=== PATIENT | female | born 1965 | race African-American/Black ===

== ENCOUNTER 2018-01-31 05:50 | Inpatient (IN) | payer BC ==
[2018-01-19 10:01] VITALS: BMI 21.9
[2018-01-31] MEDS ORDERED: TRANEXAMIC ACID 1000 MG/10 ML VIAL IVPUSH ONE (06:19)
[2018-01-31] MEDS ORDERED: ROPIVICAINE 0.2%/MORPH PF/KETOROLAC - 51ML DISP.SYRINGE IA ONE ×3 (06:19→08:46)
[2018-01-31] MEDS ORDERED: oxyCODONE HCL 10 MG SUSTAINED ACTING TABLET PO ONE (06:19)
[2018-01-31] MEDS ORDERED: CEFAZOLIN 1 GM/D5W 1 GM/50 ML BAG IVPB ONE (06:19)
[2018-01-31] MEDS ORDERED: GABAPENTIN 300 MG CAPSULE (FP) PO ONE (06:19)
[2018-01-31] MEDS ORDERED: GABAPENTIN 300 MG CAPSULE (FP) ONE (06:48)
[2018-01-31] MEDS ORDERED: oxyCODONE HCL 10 MG SUSTAINED ACTING TABLET ONE (06:48)
[2018-01-31] MEDS ORDERED: BUPIVACAINE HCL/PF (5 MG/ML) 30 ML VIAL IJ ONE (06:53)
[2018-01-31] MEDS ORDERED: MIDAZOLAM HCL 2 MG/2 ML SINGLE DOSE VIAL ONE (06:53)
[2018-01-31] MEDS ORDERED: DEXAMETHASONE SOD PHOSPHATE/PF 10 MG/ML SDV ONE (06:53)
[2018-01-31] MEDS ORDERED: SUCCINYLCHOLINE CHLORIDE 200 MG/10 ML VIAL ONE (07:11)
[2018-01-31] MEDS ORDERED: PROPOFOL 20 ML ONE (07:11)
[2018-01-31] MEDS ORDERED: DEXAMETHASONE SOD PHOSPHATE 4 MG/1 ML VIAL ONE (07:12)
[2018-01-31] MEDS ORDERED: ONDANSETRON 4 MG/2 ML VIAL ONE (07:12)
[2018-01-31] MEDS ORDERED: ceFAZolin SODIUM 1 GM VIAL ONE (07:12)
[2018-01-31] MEDS ORDERED: TRANEXAMIC ACID 1000 MG/10 ML VIAL ONE ×2 (08:29→09:59)
[2018-01-31] MEDS ORDERED: ceFAZolin SODIUM 1 GM VIAL IVPB ONE (08:45)
[2018-01-31] MEDS ORDERED: ONDANSETRON 4 MG/2 ML VIAL IVPUSH PRN (10:03)
[2018-01-31] MEDS ORDERED: MAG HYDROX/AL HYDROX/SIMETH 30 ML UNIT-DOSE CUP PO PRN (10:03)
--- NOTE | 2018-01-31 10:07 | SURG ---
Surgery Owner Manager Note Owner Manager: Braydon Ramirez PA-C Date of Service: 01/31/18 Diagnosis: Left knee medial DJD, OA Procedure: TADEO Left knee (medial) arthoplasty I was present for the entirety of the operative procedure. For further detail, please refer to operative report. Visit type - Case Type Case Type: Scheduled - New patient This patient is new to me today: Yes Date on this admission: 01/31/18
[2018-01-31] MEDS ORDERED: LACTATED RINGERS SOLUTION 1,000 ML IV SCH (10:15)
[2018-01-31] MEDS ORDERED: oxyCODONE HCL 5 MG TABLET PO PRN ×2 (10:59)
[2018-01-31] MEDS ORDERED: ACETAMINOPHEN 325 MG TABLET (FP) PO ONE (11:09)
--- NOTE | 2018-01-31 14:38 | SPEC ---
DATE OF OPERATION: 01/31/2018 PREOPERATIVE DIAGNOSIS: Degenerative joint disease, left knee. POSTOPERATIVE DIAGNOSIS: Degenerative joint disease, left knee. PROCEDURE: Left medial unicompartmental knee replacement with robotic-assisted navigation (MAKOplasty) and patelloplasty. SURGICAL ATTENDING: Carlos Navarrete MD OPERATIONS INSPECTOR: CONG John ANESTHESIA: Regional and spinal. CLOSURE: Medial unicompartmental TADEO components with a 4 femur, 4 tibia, and an 8 polyethylene; No. 1 Vicryl, fascia; 0 and 2-0, subcutaneous; 3-0 Monocryl subcuticular with skin glue for skin; 4-0 undyed Vicryl for pin sites. ESTIMATED BLOOD LOSS: Negligible. TOURNIQUET TIME: Approximately 21 minutes. COMPLICATIONS: None. CONDITION: To recovery in stable condition. DESCRIPTION OF OPERATIVE PROCEDURE: Patient was taken to the operating room on January 31, 2018. Spinal and regional anesthesia was administered by the anesthesiologist. IV Kefzol and TXA were administered prophylactically prior to the case. A well-padded pneumatic tourniquet was placed on the left proximal thigh. The left lower extremity was prepped and draped in the usual sterile fashion. A 6- to 8-cm longitudinal incision over the medial side of the patella from mid patella to the tibial tubercle was incised and was deepened using Bovie cautery. An arthrotomy was then made just medial to the patellar tendon and the patella. Subperiosteal dissection was done on the anteromedial proximal tibia all the way back to the MCL. Partial fat pad excision was performed, exposing the medial compartment. Checkpoint was malleable at both the femur and the tibia. Using 2 stab incisions in the femur 1 handbreadth above the patella on the femur and 2 stab incisions 1 handbreadth below the tibial tubercle on the tibia, 2 threaded pins were drilled in parallel fashion from anterior to posterior, going through the proximal cortex and engaging the 2nd but not through the 2nd cortex. To these threaded pins were fastened navigation rays, 1 on the femur and 1 on the tibia. The knee was then registered with the navigation device with the center of the rotation of the hip, medial and lateral malleoli, and multiple points both on the femur and on the tibia. Excellent registration of less than 0.5 mm was obtained on both to ensure adequate registration. The navigation device ensured us to "pop the bubbles" both on the femur and the tibia and that was performed and passed registration. The knee was then thoroughly inspected to remove all osteophytes both on the femur and the tibia. Also, osteophytes on the trochlea and on the surface of the patella were removed as well. The knee was then stressed with valgus stress at 0, 30, 60, 90, and 120 degrees of flexion. This propagated a looseness/tightness graft. The virtual positions of the components were then optimized to ensure an excellent graft. The tracking also was optimized by manipulating the virtual position to ensure that the femoral component articulated with the central portion of the tibial component. The robot was then brought into the field and was registered. The robot was used to bur the bone on both the femur and the tibia as to the specifications of the components. The trial components were then applied on both the femur and the tibia with an appropriate polyethylene insert. The knee was taken through a range of motion and found to have full extension, full flexion, with excellent stability. Stressing the graft revealed an excellent looseness/tightness graft with the trial components in place. The trial components were removed. The knee was thoroughly irrigated with a copious amount of antibiotic irrigation. The real components were then cemented in using modern generation cement techniques with antibiotic cement and pressurization. After the cement was hardened, the knee was thoroughly inspected to remove out all excess cement. The real polyethylene insert was then clipped into place. Range of motion and stability were again assessed to be as they were with the trials. At this time, the pins and the checkpoints were removed. The knee was again thoroughly irrigated. The arthrotomy was closed with No. 1 Vicryl, 0 and 2-0 subcutaneous, and 3-0 Monocryl subcuticular with skin glue for the skin, 4-0 undyed Vicryl for the pin sites. Sterile pressure dressing was placed over the knee. Patient awakened from anesthesia and transferred to recovery in stable condition. No complications. Estimated blood loss negligible. X-rays postoperatively revealed excellent position of the components. Laz [id number]
[2018-01-31] MEDS: ACETAMINOPHEN 325 MG TABLET (FP) PO SCH (18:32)
[2018-01-31] MEDS: CEFAZOLIN 1 GM/D5W 1 GM/50 ML BAG IVPB SCH (18:33)
[2018-01-31] MEDS: ASPIRIN 325 MG TABLET PO SCH (21:30)
[2018-01-31] MEDS: CELECOXIB 200 MG CAPSULE PO SCH (21:30)
[2018-01-31] MEDS: GABAPENTIN 300 MG CAPSULE (FP) PO SCH (21:31)
[2018-01-31] MEDS: oxyCODONE HCL 10 MG SUSTAINED ACTING TABLET PO SCH (21:31)
[2018-01-31] MEDS: ASCORBIC ACID 500 MG TABLET (FP) PO SCH (21:31)
[2018-01-31] MEDS: SENNOSIDES/DOCUSATE COMBO (SENNA PLUS) TABLET (UD) PO SCH (22:03)
[2018-01-31 22:18] VITALS: PULSE 59
[2018-02-01] MEDS: CEFAZOLIN 1 GM/D5W 1 GM/50 ML BAG IVPB SCH (02:00)
[2018-02-01] MEDS: ACETAMINOPHEN 325 MG TABLET (FP) PO SCH ×2 (06:04→12:19)
[2018-02-01 06:38] VITALS: BP 141/71; TEMP 98.6
[2018-02-01 08:24] LABS: HEMATOCRIT 37.1 % (32.4-45.2); HEMOGLOBIN 12.6 GM/dl (10.7-15.3); MCH 27.6 pg (25.7-33.7); MCHC 33.9 g/dl (32.0-36.0); MEAN CELL VOLUME 81.3 fl (80-96); MEAN PLT VOLUME 10.2 fl (7.5-11.1); PLATELET COUNT 206 K/MM3 (134-434); RBC 4.57 M/mm3 (3.60-5.2); RDW 14.9 % (11.6-15.6); WHITE BLOOD COUNT 8.4 K/mm3 (4.0-10.8)
--- NOTE | 2018-02-01 08:24 | PN ---
Progress Note (short form) - Note Progress Note: AVSS COMFORTABLE BANDAGES DRY AND INTACT CALF SOFT AND NT + STRAIGHT LEG RAISE ABILITY AROM 0-95 IMP: DOING WELL PLAN: PT FOR AMBULATION, DC TO HOME AFTER PT, F/U MY OFFICE x 1 WEEK
[2018-02-01 08:33] LABS: ANION GAP 7 MMOL/L (8-16); BLOOD UREA NITROGEN 13 mg/dl (7-18); CALCIUM 8.9 mg/dl (8.4-10.2); CHLORIDE 104 mmol/L (98-107); CO2 27 mmol/L (22-28); CREATININE 0.7 mg/dl (0.6-1.3); GLUCOSE,RANDOM 96 mg/dl (74-106); SODIUM 138 mmol/L (136-145)
[2018-02-01] MEDS ORDERED: PANTOPRAZOLE 40 MG TABLET (FP) PO SCH (10:00)
[2018-02-01] MEDS ORDERED: MULTIVITAMINS (DAILY MVI) TABLET (FP) PO SCH (10:00)
[2018-02-01] MEDS: ASPIRIN 325 MG TABLET PO SCH (10:09)
[2018-02-01] MEDS: oxyCODONE HCL 10 MG SUSTAINED ACTING TABLET PO SCH (10:09)
[2018-02-01] MEDS: CELECOXIB 200 MG CAPSULE PO SCH (10:10)
[2018-02-01] MEDS: GABAPENTIN 300 MG CAPSULE (FP) PO SCH (10:11)
[2018-02-01] MEDS: SENNOSIDES/DOCUSATE COMBO (SENNA PLUS) TABLET (UD) PO SCH (10:11)
[2018-02-01] MEDS: ASCORBIC ACID 500 MG TABLET (FP) PO SCH (10:11)
== END 2018-02-01 13:02 | disposition home health service (06) | DRG 470 ==
LOC: FM/S 05:50 → EDSTATUS 09:30 → FM/S 11:20
PROVIDERS: ADMIT Orthopaedic Surgery; ATTEND Orthopaedic Surgery
PROC: 8E0Y0CZ Robotic Assisted Procedure of Lower Extremity, Open Approach (ICD-10-PCS; 2018-01-31)
PROC: 0SRD0J9 Replacement of Left Knee Joint with Synthetic Substitute, Cemented, Open Approach (ICD-10-PCS; principal; 2018-01-31 09:15)
DX: M17.12 Unilateral primary osteoarthritis, left knee (principal)
CPT/HCPCS: 36415; 73560-TC-LT-FY; 80048; 85027; 87389; 94760; 97116-GP; 97162-GP

== ENCOUNTER 2019-01-20 10:18 | Emergency (ER) | payer BC | END 2019-01-20 11:11 | disposition home or self-care (01) | LOC: JERFT 10:18 ==

== ENCOUNTER 2019-05-16 12:08 | Emergency (ER) | payer OTHER, BC ==
[2019-05-16 12:16] VITALS: BP 133/64; PULSE 95; TEMP 98.1; BMI 22.1
[2019-05-16] MEDS ORDERED: KETOROLAC TROMETHAMINE 60 MG/2 ML VIAL IM ONE (12:56)
[2019-05-16] MEDS ORDERED: diazePAM 5 MG TABLET PO ONE (12:57)
[2019-05-16] MEDS ORDERED: diazePAM 5 MG TABLET ONE (13:00)
[2019-05-16] MEDS ORDERED: KETOROLAC TROMETHAMINE 60 MG/2 ML VIAL ONE (13:00)
--- NOTE | 2019-05-16 13:43 | PDOC ---
History of Present Illness - General Chief Complaint: Head/Neck problem Stated Complaint: NECK PAIN Time Seen by Provider: 05/16/19 12:46 - History of Present Illness Initial Comments: 05/16/19 13:41 53-year-old female without comorbidities presents for evaluation of cervical spine pain history of herniated disc without radicular or systemic symptoms x3 days Past History - Past Medical History Allergies/Adverse Reactions: Allergies Allergy/AdvReac Type Severity Reaction Status Date / Time Sulfa (Sulfonamide Allergy Severe Hives Verified 05/16/19 12:16 Antibiotics) Home Medications: Ambulatory Orders Ferrous Sulfate 325 mg PO DAILY 01/19/18 Multivitamin [Multiple Vitamins] 1 each PO Q2D 01/19/18 Oxycodone HCl/Acetaminophen [Percocet 5-325 mg Tablet -] 1 - 2 tab PO Q6H #60 tab MDD 6 02/01/18 Valacyclovir HCl [Valtrex] 1,000 mg PO BID #20 tablet 01/20/19 Cyclobenzaprine HCl [Flexeril 10 mg] 10 mg PO HS PRN #10 tablet 05/16/19 Ibuprofen [Motrin -] 600 mg PO TID #30 tablet 05/16/19 Anemia: No Asthma: No (CHILDHOOD) Cancer: No Cardiac Disorders: No CVA: No COPD: No CHF: No Dementia: No Diabetes: No GI Disorders: No Disorders: No HTN: No Hypercholesterolemia: No Liver Disease: No Seizures: No Thyroid Disease: No - Surgical History Abdominal Surgery: Yes (UMBILICAL HERNIA REPAIR) Appendectomy: No Cardiac Surgery: No Cholecystectomy: No Lung Surgery: No Neurologic Surgery: No Orthopedic Surgery: Yes (LEFT AND RIGHT KNEE ARTHROSCOPY, LEFT SHOULDER SURGERY) - Immunization History Immunization Up to Date: Yes - Psycho Social/Smoking Cessation Hx Smoking History: Current every day smoker Have you smoked in the past 12 months: Yes Number of Cigarettes Smoked Daily: 10 Information on smoking cessation initiated: No 'Breaking Loose' booklet given: 11/21/17 Hx Alcohol Use: No Drug/Substance Use Hx: No Substance Use Type: Marijuana Hx Substance Use Treatment: No Review of Systems - Review of Systems Constitutional: No: Fever Musculoskeletal: Yes: Neck Pain *Physical Exam - Vital Signs Last Vital Signs Temp Pulse Resp BP Pulse Ox 98.1 F 95 H 17 133/64 100 05/16/19 12:10 05/16/19 12:10 05/16/19 12:10 05/16/19 12:10 05/16/19 12:10 - Physical Exam 05/16/19 13:42 Cervical spine skin color temperature normal range of motion is limited. No midline tenderness moderate bilateral musculature spasm and tenderness about the paracervical musculature. 5 out of 5 strength bilateral upper extremities without gross sensorimotor deficits neurovascular intact. ED Treatment Course - Medications Given in the ED: ED Medications Discontinued Medications Generic Name Dose Route Start Last Admin Trade Name Freq PRN Reason Stop Dose Admin Diazepam 10 mg 05/16/19 12:57 05/16/19 13:17 Valium - PO 05/16/19 12:58 10 mg ONCE ONE Administration Ketorolac Tromethamine 60 mg 05/16/19 12:56 05/16/19 13:16 Toradol Injection - IM 05/16/19 12:57 60 mg ONCE ONE Administration Medical Decision Making - Medical Decision Making 05/16/19 13:42 Cervical strain Flexeril and Motrin follow-up with Ortho she has an orthopedic spine surgeon and scheduled appointment in the next 3 weeks Discharge - Discharge Information Problems reviewed: Yes Clinical Impression/Diagnosis: Cervical strain Condition: Stable Disposition: HOME - Admission No - Additional Discharge Information Prescriptions: Cyclobenzaprine HCl [Flexeril 10 mg] 10 mg PO HS PRN #10 tablet PRN Reason: Muscle Spasms Ibuprofen [Motrin -] 600 mg PO TID #30 tablet - Follow up/Referral - Patient Discharge Instructions Additional Instructions: Return to the emergency room for worsening symptoms. Please take the Motrin and Flexeril as directed follow-up with your orthopedic spine surgeon without fail in the next 2 to 3 weeks - Post Discharge Activity Work/Back to School Note: Back to Work
== END 2019-05-16 13:51 | disposition home or self-care (01) ==
LOC: JERFT 12:08
PROC: 3E0233Z Introduction of Anti-inflammatory into Muscle, Percutaneous Approach (ICD-10-PCS; principal; 2019-05-16)
DX: S16.1XXA Strain of muscle, fascia and tendon at neck level, initial encounter (principal); X58.XXXA Exposure to other specified factors, initial encounter; Y93.89 Activity, other specified; Y92.89 Other specified places as the place of occurrence of the external cause; F17.210 Nicotine dependence, cigarettes, uncomplicated; Z88.2 Allergy status to sulfonamides
CPT/HCPCS: 99282-25

== ENCOUNTER 2020-11-23 17:22 | Emergency (ER) | payer BC ==
[2020-11-23 17:30] VITALS: TEMP 98.2; BMI 22.3
[2020-11-23] MEDS ORDERED: TAMSULOSIN HCL 0.4 MG CAP PO ONE (18:29)
[2020-11-23] MEDS ORDERED: SODIUM CHLORIDE 1,000 ML IV STA (18:29)
[2020-11-23] MEDS ORDERED: KETOROLAC TROMETHAMINE 30 MG/1 ML VIAL IVPUSH ONE (18:29)
[2020-11-23] MEDS ORDERED: KETOROLAC TROMETHAMINE 30 MG/1 ML VIAL ONE (18:31)
[2020-11-23 18:47] LABS: BASO % 1.7 % (0-2.0); EOS % 3.8 % (0-4.5); HEMATOCRIT 42.8 % (32.4-45.2); HEMOGLOBIN 14.4 GM/dL (10.7-15.3); LYMPH % 35.4 % (8-40); MCH 26.4 pg (25.7-33.7); MCHC 33.8 g/dl (32.0-36.0); MEAN CELL VOLUME 78.1 fl (80-96); MEAN PLT VOLUME 8.6 fl (7.5-11.1); NEUT % 49.1 % (42.8-82.8); PLATELET COUNT 215 10^3/uL (134-434); RBC 5.47 M/mm3 (3.60-5.2); RDW 15.3 % (11.6-15.6); WHITE BLOOD COUNT 6.1 K/mm3 (4.0-10.0)
[2020-11-23 18:52] LABS: EPI CELLS 10 /uL (0-25.1); HYALINE CASTS 1 /uL (0-3.1); PH,URINE 7.5 (5.0-8.0); URINE APPEARANCE CLOUDY; URINE BACTERIA 20 /uL (0-1359); URINE BILIRUBIN NEGATIVE (NEGATIVE); URINE COLOR YELLOW; URINE GLUCOSE (UA) NEGATIVE (NEGATIVE); URINE KETONE NEGATIVE (NEGATIVE); URINE LEUK ESTERASE 1+ (NEGATIVE); URINE NITRITE NEGATIVE (NEGATIVE); URINE PROTEIN TRACE (NEGATIVE); URINE RBC 38 /uL (0-23.9); URINE WBC 62 /uL (0-25.8)
[2020-11-23] MEDS ORDERED: MAG HYDROX/AL HYDROX/SIMETH -MYLANTA- ORAL SUSPENSION PO ONE (19:25)
[2020-11-23 19:28] LABS: ALBUMIN 4.8 g/dl (3.4-5.0); CALCIUM 10.1 mg/dL (8.5-10.1)
[2020-11-23 19:31] LABS: CREATININE 0.6 mg/dL (0.55-1.3)
[2020-11-23 19:33] LABS: TOT PROT 7.8 g/dl (6.4-8.2)
[2020-11-23] MEDS ORDERED: TAMSULOSIN HCL 0.4 MG CAP ONE (19:52)
[2020-11-23] MEDS ORDERED: MAG HYDROX/AL HYDROX/SIMETH 30 ML UNIT-DOSE CUP ONE (19:52)
[2020-11-23] MEDS ORDERED: ACETAMINOPHEN 1000 MG/100 ML VIAL (NON FORMULARY) IVPB ONE (19:58)
[2020-11-23] MEDS ORDERED: ACETAMINOPHEN INJECTION 100 ML IVPB ONE (19:58)
[2020-11-23 20:32] LABS: BILIRUBIN,TOTAL 0.9 mg/dL (0.2-1)
[2020-11-23 20:52] VITALS: BP 167/85; PULSE 64
== END 2020-11-23 20:50 | disposition home or self-care (01) ==
LOC: JER 17:22
PROC: 3E0333Z Introduction of Anti-inflammatory into Peripheral Vein, Percutaneous Approach (ICD-10-PCS; principal; 2020-11-23)
PROC: 3E0333Z Introduction of Anti-inflammatory into Peripheral Vein, Percutaneous Approach (ICD-10-PCS; 2020-11-23)
PROC: 3E0337Z Introduction of Electrolytic and Water Balance Substance into Peripheral Vein, Percutaneous Approach (ICD-10-PCS; 2020-11-23)
DX: M54.9 Dorsalgia, unspecified (principal); K59.00 Constipation, unspecified
CPT/HCPCS: 36415; 74176-TC; 80053; 81003; 85025; 87086; 99284-25; J0131

== ENCOUNTER 2021-09-01 18:11 | Emergency (ER) | payer BC ==
[2021-09-01 18:17] VITALS: BP 156/81; PULSE 73; TEMP 97.9; BMI 23.7
[2021-09-01] MEDS ORDERED: KETOROLAC TROMETHAMINE 30 MG/1 ML VIAL IM ONE (19:56)
[2021-09-01] MEDS ORDERED: KETOROLAC TROMETHAMINE 30 MG/1 ML VIAL ONE (19:57)
== END 2021-09-01 21:34 | disposition home or self-care (01) ==
LOC: JER 18:11 → JERFT 18:11
PROC: 3E023GC Introduction of Other Therapeutic Substance into Muscle, Percutaneous Approach (ICD-10-PCS; principal; 2021-09-01)
DX: M17.12 Unilateral primary osteoarthritis, left knee (principal)
CPT/HCPCS: 73562-TC-RT-FY; 99284-25

== ENCOUNTER 2021-12-03 16:39 | Emergency (ER) | payer BC ==
[2021-12-03 17:22] VITALS: BP 133/75; PULSE 65; TEMP 98.2; BMI 25.8
[2021-12-03] MEDS ORDERED: ACETAMINOPHEN 325 MG TABLET (FP) PO ONE (19:35)
[2021-12-03] MEDS ORDERED: ACETAMINOPHEN 325 MG TABLET (FP) ONE (19:50)
== END 2021-12-03 20:34 | disposition home or self-care (01) ==
LOC: JER 16:39
DX: I10 Essential (primary) hypertension (principal)
CPT/HCPCS: 93005; 93010; 99283-25

== ENCOUNTER 2022-01-15 17:30 | Emergency (ER) | payer OTHER, BC ==
[2022-01-15 18:06] VITALS: BP 127/73; PULSE 64; RESP 18; TEMP 98.1; BMI 22.1
[2022-01-15] MEDS ORDERED: ACETAMINOPHEN 500 MG TABLET (FP) PO ONE (19:03)
[2022-01-15] MEDS ORDERED: diazePAM 5 MG TABLET PO ONE (19:03)
[2022-01-15] MEDS ORDERED: KETOROLAC TROMETHAMINE 30 MG/1 ML VIAL IM ONE (19:03)
[2022-01-15] MEDS ORDERED: LIDOCAINE 5% TOPICAL PATCH TP ONE (19:03)
[2022-01-15] MEDS ORDERED: LIDOCAINE 5% TOPICAL PATCH ONE ×2 (19:18→19:28)
[2022-01-15] MEDS ORDERED: diazePAM 5 MG TABLET ONE (19:19)
[2022-01-15] MEDS ORDERED: KETOROLAC TROMETHAMINE 30 MG/1 ML VIAL ONE (19:19)
[2022-01-15] MEDS ORDERED: ACETAMINOPHEN 500 MG TABLET (FP) ONE (19:19)
[2022-01-16] MEDS ORDERED: LIDOCAINE PATCH REMOVAL MC SCH (07:00)
== END 2022-01-15 19:41 | disposition home or self-care (01) ==
LOC: JERFT 17:30
PROC: 3E0233Z Introduction of Anti-inflammatory into Muscle, Percutaneous Approach (ICD-10-PCS; principal; 2022-01-15)
DX: M54.50 Low back pain, unspecified (principal); M54.2 Cervicalgia; M25.511 Pain in right shoulder; V43.52XA Car driver injured in collision with other type car in traffic accident, initial encounter
CPT/HCPCS: 99284-25

== ENCOUNTER 2023-07-11 06:06 | Inpatient (IN) | payer OTHER ==
[2023-06-30 14:41] VITALS: BMI 26.3
[2023-07-11] MEDS ORDERED: MIDAZOLAM HCL 2 MG/2 ML SINGLE DOSE VIAL ONE (07:36)
[2023-07-11] MEDS ORDERED: VANCOMYCIN 1,000 MG VIAL (RESTRICTED TO ID ONLY) ONE (07:42)
[2023-07-11] MEDS ORDERED: BUPIVACAINE HCL/PF 0.5% (5MG/ML) 10 ML VIAL ONE (07:53)
[2023-07-11] MEDS ORDERED: BUPIVACAINE LIPOSOME/PF (EXPAREL) 266 MG/20 ML VIAL ONE (07:53)
[2023-07-11] MEDS ORDERED: FLUMAZENIL 0.5 MG/5 ML VIAL ONE (08:28)
[2023-07-11] MEDS ORDERED: TRANEXAMIC ACID 1000 MG/10 ML VIAL ONE (08:28)
[2023-07-11] MEDS ORDERED: ceFAZolin SODIUM 1 GM VIAL ONE (08:28)
[2023-07-11] MEDS ORDERED: PROPOFOL 20 ML ONE ×3 (08:28→10:20)
[2023-07-11] MEDS ORDERED: BUPIVICAINE 0.25%/MORPH PF/KETOROLAC - 51ML DISP.SYRINGE IA ONE (09:40)
[2023-07-11] MEDS: VANCOMYCIN 1,000 MG VIAL (RESTRICTED TO ID ONLY) IVPB ONE (09:40)
[2023-07-11] MEDS: BUPIVICAINE 0.25%/MORPH PF/KETOROLAC - 51ML DISP.SYRINGE IA ONE (09:51)
[2023-07-11] MEDS ORDERED: MAG HYDROX/AL HYDROX/SIMETH 30 ML UNIT-DOSE CUP PO PRN (10:57)
[2023-07-11] MEDS ORDERED: oxyCODONE HCL 5 MG TABLET PO PRN (11:02)
[2023-07-11] MEDS: KETOROLAC TROMETHAMINE 30 MG/1 ML VIAL IVPUSH SCH (11:12)
[2023-07-11] MEDS ORDERED: LACTATED RINGERS SOLUTION 1,000 ML IV SCH (11:15)
[2023-07-11] MEDS: ONDANSETRON 4 MG/2 ML VIAL IVPUSH PRN ×2 (11:16→23:26)
[2023-07-11] MEDS: ACETAMINOPHEN 500 MG TABLET (FP) PO SCH ×2 (11:17→18:50)
[2023-07-11] MEDS: TRANEXAMIC ACID 1000 MG/10 ML VIAL IVPUSH ONE (12:54)
[2023-07-11] MEDS: ACETAMINOPHEN 1000 MG/100 ML BAG IVPB ONE (12:56)
[2023-07-11] MEDS: CEFAZOLIN SODIUM 2 GM VIAL IVPB ONE (12:56)
[2023-07-11] MEDS: LACTATED RINGERS SOLUTION 1,000 ML IV SCH (12:56)
[2023-07-11 13:01] VITALS: RESP 18
[2023-07-11] MEDS: oxyCODONE HCL 5 MG TABLET PO PRN (16:40)
[2023-07-11] MEDS: CEFAZOLIN 1 GM in DEXTROSE 5%-WATER - 50 ML IVPB SCH (16:41)
[2023-07-11] MEDS: SENNOSIDES/DOCUSATE COMBO (SENNA PLUS) TABLET (UD) PO SCH (21:36)
[2023-07-11] MEDS: oxyCODONE HCL 10 MG SUSTAINED ACTING TABLET PO SCH (21:36)
[2023-07-11] MEDS: GABAPENTIN 300 MG CAPSULE PO SCH (21:36)
[2023-07-11] MEDS: ASPIRIN 81 MG CHEWABLE TABLETS PO SCH (21:36)
[2023-07-12 08:08] LABS: CALCIUM 8.6 mg/dl (8.5-10.1); CREATININE 0.7 mg/dl (0.6-1.3); POTASSIUM 3.6 mmol/L (3.5-5.1)
[2023-07-12] MEDS: MULTIVITAMINS (DAILY MVI) TABLET (FP) PO SCH (09:21)
[2023-07-12] MEDS: CHOLECALCIFEROL (VIT D3) 1,000 UNIT (25 MCG) TABLET PO SCH (09:21)
[2023-07-12] MEDS: PANTOPRAZOLE 40 MG TABLET PO SCH (09:21)
[2023-07-12] MEDS ORDERED: HYDROCHLOROTHIAZIDE 12.5 MG CAPSULE (FP) PO SCH (10:00)
[2023-07-12] MEDS ORDERED: LISINOPRIL 10 MG TABLET PO SCH (10:00)
[2023-07-12 10:02] LABS: BASO % 0.7 % (0-2.0); EOS % 0.5 % (0-4.5); HEMATOCRIT 36.4 % (32.4-45.2); HEMOGLOBIN 12.5 GM/dL (10.7-15.3); LYMPH % 19.9 % (8-40); MCH 26.6 pg (25.7-33.7); MCHC 34.4 g/dl (32.0-36.0); MEAN CELL VOLUME 77.5 fl (80-96); MEAN PLT VOLUME 9.2 fl (7.5-11.1); MONO % 7.9 % (3.8-10.2); PLATELET COUNT 198 10^3/uL (134-434); RDW 15.9 % (11.6-15.6); WHITE BLOOD COUNT 6.7 K/mm3 (4.0-10.0)
[2023-07-12 12:26] VITALS: BP 107/87; PULSE 85; TEMP 98.8
[2023-07-12] MEDS: ACETAMINOPHEN 1000 MG/100 ML BAG IVPB SCH (14:43)
== END 2023-07-12 17:32 | disposition home or self-care (01) | DRG 302 ==
LOC: FASU 06:06 → FM/S 11:02
PROVIDERS: ATTEND Internal Medicine
PROC: 8E0Y0CZ Robotic Assisted Procedure of Lower Extremity, Open Approach (ICD-10-PCS; 2023-07-11)
PROC: 0SRC0JZ Replacement of Right Knee Joint with Synthetic Substitute, Open Approach (ICD-10-PCS; principal; 2023-07-11 08:49)
DX: M17.11 Unilateral primary osteoarthritis, right knee (principal); R50.82 Postprocedural fever; M54.16 Radiculopathy, lumbar region
CPT/HCPCS: 36415; 73560-TC-RT-FY; 80048; 85025; 87633; 94760; 97010-GP; 97116-GP; 97162-GP; C1776; J0131

== ENCOUNTER 2023-12-21 12:19 | Emergency (ER) | payer OTHER ==
[2023-12-21 12:34] VITALS: BP 144/82; PULSE 90; RESP 18; TEMP 99.1; BMI 26.7
[2023-12-21] MEDS ORDERED: ACETAMINOPHEN INJECTION 100 ML IVPB ONE (14:19)
[2023-12-21] MEDS ORDERED: diphenhydrAMINE HCL 25 MG CAPSULE (FP) PO ONE (14:19)
[2023-12-21] MEDS ORDERED: FAMOTIDINE 20 MG/50 ML IVPB 20 MG/50 ML MG IVPB ONE (14:19)
[2023-12-21] MEDS ORDERED: ONDANSETRON 4 MG/2 ML VIAL ONE (14:19)
[2023-12-21] MEDS: diphenhydrAMINE HCL 25 MG CAPSULE (FP) PO ONE (14:35)
[2023-12-21] MEDS: FAMOTIDINE 20 MG/50 ML IVPB 20 MG/50 ML MG IVPB ONE (14:45)
[2023-12-21] MEDS: ONDANSETRON 4 MG/2 ML VIAL IVPUSH ONE (14:45)
[2023-12-21] MEDS: ACETAMINOPHEN 1000 MG/100 ML BAG IVPB ONE (14:45)
[2023-12-21] MEDS: LACTATED RINGERS SOLUTION 1000 ML INFUS.BAG IV ONE (14:45)
[2023-12-21 15:03] LABS: BASO % 0.5 % (0-2.0); EOS % 1.9 % (0-4.5); HEMATOCRIT 42.8 % (32.4-45.2); HEMOGLOBIN 14.4 GM/dL (10.7-15.3); LYMPH % 37.5 % (8-40); MCH 25.2 pg (25.7-33.7); MCHC 33.7 g/dl (32.0-36.0); MEAN CELL VOLUME 74.6 fl (80-96); MEAN PLT VOLUME 8.3 fl (7.5-11.1); MONO % 7.8 % (3.8-10.2); NEUT % 52.3 % (42.8-82.8); PLATELET COUNT 266 10^3/uL (134-434); RBC 5.73 M/mm3 (3.60-5.2); WHITE BLOOD COUNT 6.7 K/mm3 (4.0-10.0)
[2023-12-21 15:31] LABS: POTASSIUM 3.3 mmol/L (3.5-5.1)
[2023-12-21 15:33] LABS: ALBUMIN 3.9 g/dl (3.4-5.0); CALCIUM 9.2 mg/dL (8.5-10.1); MAGNESIUM 2.3 mg/dL (1.8-2.4)
[2023-12-21 15:34] LABS: BLOOD UREA NITROGEN 8.9 mg/dL (7-18)
[2023-12-21 15:35] LABS: CREATININE 0.8 mg/dL (0.55-1.3)
[2023-12-21 15:37] LABS: BILIRUBIN,TOTAL 1.2 mg/dL (0.2-1); TOT PROT 7.6 g/dl (6.4-8.2)
[2023-12-21] MEDS ORDERED: POTASSIUM CHLORIDE TABS 20 MEQ TABLET.ER (FP) PO ONE (16:31)
[2023-12-21] MEDS: POTASSIUM CHLORIDE TABS 20 MEQ TABLET.ER (FP) PO ONE (16:31)
== END 2023-12-21 16:35 | disposition home or self-care (01) ==
LOC: JER 12:19
PROC: 3E033GC Introduction of Other Therapeutic Substance into Peripheral Vein, Percutaneous Approach (ICD-10-PCS; principal; 2023-12-21)
PROC: 3E033NZ Introduction of Analgesics, Hypnotics, Sedatives into Peripheral Vein, Percutaneous Approach (ICD-10-PCS; 2023-12-21)
PROC: 3E033GC Introduction of Other Therapeutic Substance into Peripheral Vein, Percutaneous Approach (ICD-10-PCS; 2023-12-21)
DX: R11.2 Nausea with vomiting, unspecified (principal); R19.7 Diarrhea, unspecified; R51.9 Headache, unspecified; R50.9 Fever, unspecified; R21 Rash and other nonspecific skin eruption; Z20.822 Contact with and (suspected) exposure to COVID-19
CPT/HCPCS: 0241U-QW; 36415; 80053; 83735; 85025; 99284-25; J0131

== ENCOUNTER 2024-06-07 04:25 | Day surgery (SDC) | payer OTHER ==
[2024-06-01 10:14] VITALS: BMI 25.8
[2024-06-07] MEDS: LIDOCAINE HCL 1% PRESERVATIVE FREE - 30ML VIAL IJ ONE ×2 (12:08)
[2024-06-07] MEDS: BUPIVACAINE HCL/PF 0.75% 10 ML VIAL NR ONE ×3 (12:12→12:14)
[2024-06-07 12:28] VITALS: BP 135/62; PULSE 66; RESP 16; TEMP 97.8
[2024-06-07] MEDS ORDERED: ACETAMINOPHEN 500 MG TABLET (FP) ONE (12:44)
[2024-06-07] MEDS: ACETAMINOPHEN 500 MG TABLET (FP) PO PRN (12:50)
== END 2024-06-07 13:03 | disposition home or self-care (01) ==
LOC: JASU-SURG 04:25
PROVIDERS: ATTEND Pain Medicine Pain Medicine
PROC: 3E0T33Z Introduction of Anti-inflammatory into Peripheral Nerves and Plexi, Percutaneous Approach (ICD-10-PCS; 2024-06-07)
PROC: 3E0T3BZ Introduction of Anesthetic Agent into Peripheral Nerves and Plexi, Percutaneous Approach (ICD-10-PCS; principal; 2024-06-07 12:30)
DX: M47.816 Spondylosis without myelopathy or radiculopathy, lumbar region (principal)
CPT/HCPCS: 76000-TC-FY